=== PATIENT | female | born 1935 | race Hispanic/Latino ===

== ENCOUNTER 2021-04-22 12:41 | Inpatient (IN) | payer MEDICARE, OTHER ==
[~2021-04-22] VITALS: Ht 172.7 cm; Wt 43.1 kg
[2021-04-22 14:38] LABS: BASOPHILS % 0.2 % (0.0-1.0); HEMATOCRIT 35.4 % (34.2-44.1); HEMOGLOBIN 11.6 g/dL (12.0-16.0); LYMPHOCYTES # (AUTO) 1.3 (1.0-3.2); LYMPHOCYTES % 9.4 % (18.0-39.1); MEAN CORPUSCULAR HEMOGLOBIN 27.3 pg (28-32); MEAN CORPUSCULAR HGB CONC 32.8 g/dL (31-35); MEAN CORPUSCULAR VOLUME 83.3 fL (81-99); MONOCYTES # (AUTO) 0.7 (0.2-0.8); MONOCYTES % 5.2 % (4.4-11.3); NEUTROPHILS # (AUTO) 11.4 (2.1-6.9); NEUTROPHILS % 84.8 % (38.7-80.0); PLATELET COUNT 316 x10e3/uL (140-360); RED BLOOD COUNT 4.25 x10e6/uL (3.6-5.1); RED CELL DISTRIBUTION WIDTH 14.8 % (11.7-14.4)
[2021-04-22 14:49] LABS: INR 0.97; PROTHROMBIN TIME 13.7 seconds (11.9-14.5)
[2021-04-22 14:56] LABS: ALBUMIN 3.3 g/dL (3.5-5.0); ANION GAP 14.6 mmol/L (8-16); CALCIUM 9.3 mg/dL (8.4-10.2); CREATININE, SERUM 0.76 mg/dL (0.57-1.11); POTASSIUM 3.6 mmol/L (3.5-5.1)
[2021-04-22] MEDS ORDERED: ONDANSETRON HCL INJ 2MG/ML 2ML 2 MG/ML VIAL IV PRN (15:45)
[2021-04-22] MEDS: SODIUM CHLORIDE 0.9% 1000ML 1,000 ML IV SCH ×2 (16:21→18:26)
[2021-04-22 18:15] VITALS: BP 118/72
[2021-04-22 19:00] VITALS: BP 118/72
[2021-04-22 20:00] VITALS: BP 113/48
[2021-04-22] MEDS ORDERED: AUGMENTIN 875-1 EACH PO (20:03)
[2021-04-22] MEDS ORDERED: SINGULAIR10 MG PO (20:03)
[2021-04-22] MEDS ORDERED: METFORMIN HCL1000 MG PO (20:03)
[2021-04-22] MEDS ORDERED: ARICEPT5 MG PO (20:03)
[2021-04-22] MEDS ORDERED: METFORMIN HCL500 MG PO (20:03)
[2021-04-22] MEDS ORDERED: METOPROLOL SUCC25 MG PO (20:03)
[2021-04-22] MEDS ORDERED: LORATADINE10 MG PO (20:03)
[2021-04-22] MEDS ORDERED: OXYBUTYNIN CHLOR5 MG PO (20:03)
[2021-04-22] MEDS: Pantoprazole IV 40 MG in SODIUM CHLORIDE 0.9% 50ML 50 ML IV SCH (23:42)
[2021-04-23] VITALS: BP 108/57
[2021-04-23 00:44] LABS: FERRITIN 48.68 ng/mL (4.63-204.00)
[2021-04-23 04:00] VITALS: BP 110/59
[2021-04-23 05:32] LABS: BASOPHILS % 0.5 % (0.0-1.0); EOSINOPHILS # (AUTO) 0.1 (0.0-0.4); EOSINOPHILS % 1.7 % (0.0-6.0); HEMOGLOBIN 8.8 g/dL (12.0-16.0); LYMPHOCYTES # (AUTO) 1.9 (1.0-3.2); LYMPHOCYTES % 25.1 % (18.0-39.1); MEAN CORPUSCULAR HEMOGLOBIN 27.6 pg (28-32); MEAN CORPUSCULAR HGB CONC 32.6 g/dL (31-35); MEAN CORPUSCULAR VOLUME 84.6 fL (81-99); MONOCYTES # (AUTO) 0.7 (0.2-0.8); NEUTROPHILS # (AUTO) 4.9 (2.1-6.9); NEUTROPHILS % 63.3 % (38.7-80.0); PLATELET COUNT 210 x10e3/uL (140-360); RED BLOOD COUNT 3.19 x10e6/uL (3.6-5.1); RED CELL DISTRIBUTION WIDTH 14.8 % (11.7-14.4)
[2021-04-23 05:56] LABS: ANION GAP 12.5 mmol/L (8-16); CREATININE, SERUM 0.62 mg/dL (0.57-1.11); POTASSIUM 3.5 mmol/L (3.5-5.1)
[2021-04-23] MEDS: SODIUM CHLORIDE 0.9% 1000ML 1,000 ML IV SCH ×2 (07:45→15:45)
[2021-04-23 08:24] VITALS: BP 105/54
[2021-04-23 08:54] VITALS: BP 105/54
[2021-04-23] MEDS: Pantoprazole IV 40 MG in SODIUM CHLORIDE 0.9% 50ML 50 ML IV SCH ×3 (09:30→14:39)
[2021-04-23] MEDS ORDERED: PROPOFOL IV EMULSION 10 MG/ML 20 ML VIAL ONE (13:51)
[2021-04-23 20:00] VITALS: BP 112/56
[2021-04-24] VITALS (8 sets, daily range): BP systolic 102–120; BP diastolic 46–73
[2021-04-24] MEDS: Pantoprazole IV 40 MG in SODIUM CHLORIDE 0.9% 50ML 50 ML IV SCH ×6 (00:08→21:19)
[2021-04-24] MEDS: SODIUM CHLORIDE 0.9% 1000ML 1,000 ML IV SCH ×4 (00:08→21:19)
[2021-04-24 09:48] LABS: BASOPHILS # (AUTO) 0.1 (0.0-0.1); BASOPHILS % 1.2 % (0.0-1.0); EOSINOPHILS # (AUTO) 0.2 (0.0-0.4); EOSINOPHILS % 3.1 % (0.0-6.0); HEMATOCRIT 28.9 % (34.2-44.1); HEMOGLOBIN 8.9 g/dL (12.0-16.0); LYMPHOCYTES % 17.9 % (18.0-39.1); MEAN CORPUSCULAR HEMOGLOBIN 27.4 pg (28-32); MEAN CORPUSCULAR HGB CONC 30.8 g/dL (31-35); MEAN CORPUSCULAR VOLUME 88.9 fL (81-99); MONOCYTES # (AUTO) 0.3 (0.2-0.8); MONOCYTES % 5.4 % (4.4-11.3); NEUTROPHILS # (AUTO) 4.1 (2.1-6.9); NEUTROPHILS % 72.1 % (38.7-80.0); PLATELET COUNT 145 x10e3/uL (140-360); RED BLOOD COUNT 3.25 x10e6/uL (3.6-5.1); RED CELL DISTRIBUTION WIDTH 15.1 % (11.7-14.4)
[2021-04-24 10:05] LABS: ANION GAP 13.5 mmol/L (8-16); CALCIUM 7.9 mg/dL (8.4-10.2); CREATININE, SERUM 0.64 mg/dL (0.57-1.11); POTASSIUM 3.5 mmol/L (3.5-5.1)
[2021-04-25] VITALS (8 sets, daily range): BP systolic 113–143; BP diastolic 51–71
[2021-04-25] MEDS: Pantoprazole IV 40 MG in SODIUM CHLORIDE 0.9% 50ML 50 ML IV SCH ×5 (04:23→20:37)
[2021-04-25] MEDS: SODIUM CHLORIDE 0.9% 1000ML 1,000 ML IV SCH ×2 (07:45→15:03)
[2021-04-26] VITALS (8 sets, daily range): BP systolic 114–139; BP diastolic 61–84
[2021-04-26] MEDS: SODIUM CHLORIDE 0.9% 1000ML 1,000 ML IV SCH ×3 (00:26→18:20)
[2021-04-26] MEDS: Pantoprazole IV 40 MG in SODIUM CHLORIDE 0.9% 50ML 50 ML IV SCH ×5 (02:30→22:30)
[2021-04-27] VITALS (9 sets, daily range): BP systolic 95–143; BP diastolic 3–66
[2021-04-27] MEDS: Pantoprazole IV 40 MG in SODIUM CHLORIDE 0.9% 50ML 50 ML IV SCH ×4 (00:30→21:57)
[2021-04-27 05:03] LABS: BASOPHILS % 0.7 % (0.0-1.0); EOSINOPHILS # (AUTO) 0.3 (0.0-0.4); EOSINOPHILS % 6.5 % (0.0-6.0); HEMATOCRIT 25.2 % (34.2-44.1); HEMOGLOBIN 8.3 g/dL (12.0-16.0); LYMPHOCYTES # (AUTO) 1.4 (1.0-3.2); LYMPHOCYTES % 30.6 % (18.0-39.1); MEAN CORPUSCULAR HEMOGLOBIN 27.5 pg (28-32); MEAN CORPUSCULAR HGB CONC 32.9 g/dL (31-35); MEAN CORPUSCULAR VOLUME 83.4 fL (81-99); MONOCYTES # (AUTO) 0.4 (0.2-0.8); MONOCYTES % 8.5 % (4.4-11.3); NEUTROPHILS # (AUTO) 2.4 (2.1-6.9); NEUTROPHILS % 53.5 % (38.7-80.0); PLATELET COUNT 214 x10e3/uL (140-360); RED BLOOD COUNT 3.02 x10e6/uL (3.6-5.1)
[2021-04-27 05:37] LABS: ALBUMIN 2.2 g/dL (3.5-5.0); ALBUMIN/GLOBULIN RATIO 0.9 (0.8-2.0); ALKALINE PHOSPHATASE 40 IU/L (40-150); ANION GAP 9.6 mmol/L (8-16); BLOOD UREA NITROGEN 10 mg/dL (7-26); BUN/CREATININE RATIO 15 (6-25); CARBON DIOXIDE 27 mmol/L (22-29); CHLORIDE 105 mmol/L (98-107); CREATININE, SERUM 0.65 mg/dL (0.57-1.11); EST GLOMERULAR FILTRATION RATE 87 ML/MIN (60-); GLUCOSE 110 mg/dL (74-118); SODIUM 139 mmol/L (136-145)
[2021-04-27 05:58] LABS: ALANINE AMINOTRANSFERASE < 6 IU/L (0-55)
[2021-04-27 05:59] LABS: POTASSIUM 2.6 mmol/L (3.5-5.1)
[2021-04-27] MEDS ORDERED: POTASSIUM CHLORIDE 20 MEQ TAB CR PO ONE ×3 (08:30→16:00)
[2021-04-28] VITALS (7 sets, daily range): BP systolic 117–142; BP diastolic 52–69
[2021-04-28] MEDS: Pantoprazole IV 40 MG in SODIUM CHLORIDE 0.9% 50ML 50 ML IV SCH ×5 (03:13→21:09)
[2021-04-28 06:48] LABS: CALCIUM 7.9 mg/dL (8.4-10.2); CREATININE, SERUM 0.7 mg/dL (0.57-1.11)
[2021-04-29] VITALS: BP 117/56
[2021-04-29 04:00] VITALS: BP 116/77
[2021-04-29] MEDS: Pantoprazole IV 40 MG in SODIUM CHLORIDE 0.9% 50ML 50 ML IV SCH (04:14)
[2021-04-29 08:26] VITALS: BP 121/60
[2021-04-29 08:47] VITALS: BP 121/60
[2021-04-29 11:43] VITALS: BP 124/71
== END 2021-04-29 12:33 | DRG 378 ==
LOC: ER 14:22 → ERHOLD 15:34 → MED/SURG 18:03
PROVIDERS: ADMIT Internal Medicine; ATTEND Internal Medicine
PROC: 0DB78ZX Excision of Stomach, Pylorus, Via Natural or Artificial Opening Endoscopic, Diagnostic (ICD-10-PCS; 2021-04-23)
PROC: 0DB68ZX Excision of Stomach, Via Natural or Artificial Opening Endoscopic, Diagnostic (ICD-10-PCS; 2021-04-23)
PROC: 0DB48ZX Excision of Esophagogastric Junction, Via Natural or Artificial Opening Endoscopic, Diagnostic (ICD-10-PCS; principal; 2021-04-23 16:00)
DX: K29.71 Gastritis, unspecified, with bleeding (principal); K22.10 Ulcer of esophagus without bleeding; E44.0 Moderate protein-calorie malnutrition; Z68.1 Body mass index [BMI] 19.9 or less, adult; F03.90 Unspecified dementia, unspecified severity, without behavioral disturbance, psychotic disturbance, mood disturbance, and anxiety; E11.9 Type 2 diabetes mellitus without complications; I25.10 Atherosclerotic heart disease of native coronary artery without angina pectoris; J44.9 Chronic obstructive pulmonary disease, unspecified; J45.909 Unspecified asthma, uncomplicated; R19.7 Diarrhea, unspecified; K44.9 Diaphragmatic hernia without obstruction or gangrene; D50.0 Iron deficiency anemia secondary to blood loss (chronic); Z20.822 Contact with and (suspected) exposure to COVID-19
CPT/HCPCS: 36415; 43239; 71045; 80048; 80053; 82607; 82728; 82746; 82948; 83540; 84466; 84484; 85025; 85045; 85610; 86850; 86900; 88305; 88312; 93005; 94799; 97139; 99283; J2405; J7030; U0002

== ENCOUNTER 2022-07-22 18:34 | Inpatient (IN) | payer MEDICARE ==
[~2022-07-22] VITALS: Ht 325.1 cm; Wt 49.0 kg
[~2022-07-22 18:34] MED LIST: ARICEPT5 MG PO; AUGMENTIN 875-1 EACH PO; ETOMIDATE 2 MG/ML 10 ML INJ IV ONE; FENTANYL CITRATE/PF 100MCG/2 ML INJ ONE; LIDOCAINE HCL 2% LOCAL INJ 5 ML SDV VIAL INJ ONE; LORATADINE10 MG PO; METFORMIN HCL1000 MG PO; METFORMIN HCL500 MG PO; METOPROLOL SUCC25 MG PO; OXYBUTYNIN CHLOR5 MG PO; POVIDONE IODINE 0.05% 0.05 % ML PO ONE; PROPOFOL IV EMULSION 10 MG/ML 20 ML VIAL ONE; SINGULAIR10 MG PO
[2022-07-22] MEDS ORDERED: SODIUM CHLORIDE 0.9% 250ML 250 ML IV ONE (18:45)
[2022-07-22] MEDS ORDERED: ONDANSETRON HCL INJ 2MG/ML 2ML 2 MG/ML VIAL IV STA (18:46)
[2022-07-22] MEDS ORDERED: SODIUM CHLORIDE 0.9% 1000ML 1,000 ML IV ONE (19:00)
[2022-07-22 19:22] LABS: BASOPHILS % 0.2 % (0.0-1.0); LYMPHOCYTES # (AUTO) 0.7 (1.0-3.2); LYMPHOCYTES % 8.6 % (18.0-39.1); MEAN CORPUSCULAR HEMOGLOBIN 20.8 pg (28-32); MEAN CORPUSCULAR HGB CONC 27.8 g/dL (31-35); MEAN CORPUSCULAR VOLUME 74.7 fL (81-99); MONOCYTES # (AUTO) 0.6 (0.2-0.8); MONOCYTES % 6.4 % (4.4-11.3); NEUTROPHILS # (AUTO) 7.2 (2.1-6.9); NEUTROPHILS % 84.2 % (38.7-80.0); PLATELET COUNT 354 x10e3/uL (140-360); RED BLOOD COUNT 2.89 x10e6/uL (3.6-5.1)
[2022-07-22 19:31] LABS: INR 1.09; PROTHROMBIN TIME 14.3 seconds (11.9-14.5)
[2022-07-22 19:32] LABS: PARTIAL THROMBOPLASTIN TIME 21.9 seconds (23.8-35.5)
[2022-07-22 19:34] LABS: HEMATOCRIT 21.6 % (34.2-44.1)
[2022-07-22 19:42] LABS: ALBUMIN 3.2 g/dL (3.5-5.0); ALKALINE PHOSPHATASE 41 IU/L (40-150); ANION GAP 14.3 mmol/L (8-16); BLOOD UREA NITROGEN 35 mg/dL (7-26); BUN/CREATININE RATIO 45 (6-25); CALCIUM 8.9 mg/dL (8.4-10.2); CARBON DIOXIDE 26 mmol/L (22-29); CHLORIDE 103 mmol/L (98-107); CREATINE KINASE 29 IU/L (29-168); CREATININE, SERUM 0.78 mg/dL (0.57-1.11); GLUCOSE 195 mg/dL (74-118); POTASSIUM 3.3 mmol/L (3.5-5.1); SODIUM 140 mmol/L (136-145)
[2022-07-22 19:49] LABS: ALANINE AMINOTRANSFERASE < 6 IU/L (0-55)
[2022-07-22] MEDS ORDERED: IOPAMIDOL 370 MG/ML 100 ML INFUS..BTL INJ ONE (20:13)
[2022-07-22] MEDS ORDERED: DEXTROSE 50% SYRINGE 50 ML IV PRN (21:00)
[2022-07-22] MEDS: INSULIN REGULAR, HUMAN 100 UNIT/1 ML SQ SCH (21:00)
[2022-07-22] MEDS ORDERED: ONDANSETRON HCL INJ 2MG/ML 2ML 2 MG/ML VIAL IV PRN (21:00)
[2022-07-22 21:23] LABS: COLOR,URINE YELLOW (YELLOW); KETONES,URINE NEGATIVE (NEGATIVE); LEUKOCYTE ESTERASE ,URINE TRACE (NEGATIVE); NITRITE,URINE NEGATIVE (NEGATIVE); PROTEIN,URINE DIPSTICK TRACE (NEGATIVE); URINE UROBILINOGEN 0.2 mg/dL (0.2 - 1)
[2022-07-22 21:31] LABS: CLARITY,URINE CLOUDY (CLEAR); WBC,URINE (MAN) >50 /HPF (0-5)
[2022-07-22 21:32] LABS: BACTERIA,URINE MANY /HPF
[2022-07-22 21:33] LABS: EPITHELIAL CELLS,URINE MANY /LPF
[2022-07-22 21:34] LABS: TRANSITIONAL EPI CELLS,URINE FEW
[2022-07-22 22:20] VITALS: BP 122/48
[2022-07-22 23:02] VITALS: BP 76/58
[2022-07-22 23:15] VITALS: BP 108/51
[2022-07-22] MEDS: SODIUM CHLORIDE 0.9% 1000ML 1,000 ML IV SCH (23:30)
[2022-07-23] VITALS (23 sets, daily range): BP systolic 101–132; BP diastolic 52–96
[2022-07-23] MEDS ORDERED: SODIUM CHLORIDE 0.9% 250ML 250 ML ONE (00:21)
[2022-07-23 00:56] LABS: HEMATOCRIT 25.5 % (34.2-44.1); HEMOGLOBIN 7.2 g/dL (12.0-16.0)
[2022-07-23] MEDS ORDERED: VITAMIN D325 MCG PO (01:07)
[2022-07-23] MEDS ORDERED: LISINOPRIL10 MG PO (01:08)
[2022-07-23] MEDS ORDERED: MIRTAZAPINE15 MG PO (01:12)
[2022-07-23] MEDS ORDERED: POTASSIUM CHLO20 ME1 PO (01:14)
[2022-07-23] MEDS ORDERED: BISACODYL 10 MG SUPP PR ONE (02:15)
[2022-07-23] MEDS ORDERED: GUAIFENESIN/DEXTROMETHORPHAN LIQD 5 ML UDC PO PRN (02:15)
[2022-07-23] MEDS ORDERED: MAGNESIUM HYDROXIDE 30 ML UDC PO PRN (02:15)
[2022-07-23] MEDS ORDERED: MAGNESIUM/ALUMINUM/SIMETHICONE 30 ML UDC PO PRN (02:15)
[2022-07-23] MEDS ORDERED: HYDRALAZINE HCL 20 MG/ML VIAL IV PRN (02:15)
[2022-07-23] MEDS ORDERED: ACETAMINOPHEN 325 MG TAB PO PRN (02:15)
[2022-07-23] MEDS ORDERED: MELATONIN 3 MG TAB PO PRN (02:15)
[2022-07-23 03:57] LABS: FERRITIN 4.66 ng/mL (4.63-204.00)
[2022-07-23 05:50] LABS: HEMATOCRIT 28.7 % (34.2-44.1); HEMOGLOBIN 8.5 g/dL (12.0-16.0)
[2022-07-23] MEDS: IPRATROPIUM BROMIDE 0.02% 2.5 ML NEB NEB SCH ×5 (06:00→22:51)
[2022-07-23 06:19] LABS: ALBUMIN 2.7 g/dL (3.5-5.0); ALBUMIN/GLOBULIN RATIO 1.2 (0.8-2.0); ALKALINE PHOSPHATASE 37 IU/L (40-150); ANION GAP 9.9 mmol/L (8-16); BLOOD UREA NITROGEN 25 mg/dL (7-26); BUN/CREATININE RATIO 40 (6-25); CALCIUM 7.7 mg/dL (8.4-10.2); CARBON DIOXIDE 24 mmol/L (22-29); CHLORIDE 111 mmol/L (98-107); CREATININE, SERUM 0.62 mg/dL (0.57-1.11); GLUCOSE 102 mg/dL (74-118); SODIUM 142 mmol/L (136-145)
[2022-07-23 06:20] LABS: ALANINE AMINOTRANSFERASE < 6 IU/L (0-55)
[2022-07-23 06:22] LABS: POTASSIUM 2.9 mmol/L (3.5-5.1)
[2022-07-23 06:27] LABS: CREATINE KINASE MB 3.3 ng/mL (0-5.0)
[2022-07-23] MEDS: INSULIN REGULAR, HUMAN 100 UNIT/1 ML SQ SCH ×4 (07:30→21:00)
[2022-07-23] MEDS ORDERED: POTASSIUM CHLORIDE 20 MEQ TAB CR PO STA (07:33)
[2022-07-23] MEDS ORDERED: POTASSIUM CHLORIDE 20MEQ/100ML 100 ML IV ONE ×2 (07:45→15:15)
[2022-07-23] MEDS: MULTIVITAMINS/MINERALS TAB PO SCH (09:00)
[2022-07-23] MEDS: DOCUSATE SODIUM 100 MG CAP PO SCH ×2 (09:00→16:04)
[2022-07-23] MEDS ORDERED: POTASSIUM CHLORIDE 20 MEQ TAB CR PO ONE (10:00)
[2022-07-23] MEDS: SODIUM CHLORIDE 0.9% 1000ML 1,000 ML IV SCH ×2 (10:27→21:58)
[2022-07-23 12:34] LABS: HEMATOCRIT 28.6 % (34.2-44.1); HEMOGLOBIN 8.5 g/dL (12.0-16.0)
[2022-07-23] MEDS ORDERED: POTASSIUM CHLORIDE 10MEQ/100ML 100 ML IV ONE (17:30)
[2022-07-23] MEDS: LEVOFLOXACIN 500MG/D5W 100ML 100 ML IV SCH (21:08)
[2022-07-24] VITALS (30 sets, daily range): BP systolic 92–150; BP diastolic 58–108
[2022-07-24] MEDS: IPRATROPIUM BROMIDE 0.02% 2.5 ML NEB NEB SCH ×6 (03:00→23:40)
[2022-07-24 05:00] LABS: HEMATOCRIT 24.4 % (34.2-44.1); HEMOGLOBIN 7.2 g/dL (12.0-16.0)
[2022-07-24 05:30] LABS: ANION GAP 8.9 mmol/L (8-16); CREATININE, SERUM 0.52 mg/dL (0.57-1.11); MAGNESIUM 1.4 MG/DL (1.3-2.1)
[2022-07-24 05:47] LABS: CALCIUM 6.8 mg/dL (8.4-10.2); POTASSIUM 2.9 mmol/L (3.5-5.1)
[2022-07-24] MEDS: SODIUM CHLORIDE 0.9% 1000ML 1,000 ML IV SCH (06:32)
[2022-07-24] MEDS: POTASSIUM CHLORIDE 20MEQ/100ML 100 ML IV SCH ×3 (06:33→11:03)
[2022-07-24] MEDS ORDERED: MAGNESIUM SULFATE 2GM/50ML 50 ML IV ONE (07:00)
[2022-07-24] MEDS: INSULIN REGULAR, HUMAN 100 UNIT/1 ML SQ SCH ×4 (07:30→21:00)
[2022-07-24] MEDS: DOCUSATE SODIUM 100 MG CAP PO SCH ×2 (08:11→17:00)
[2022-07-24] MEDS: MULTIVITAMINS/MINERALS TAB PO SCH (08:12)
[2022-07-24] MEDS: SOD CHL 0.45%/POT CHL 20MEQ 1,000 ML IV SCH ×2 (08:48→19:42)
[2022-07-24] MEDS: IRON SUCROSE 100 MG in SODIUM CHLORIDE 0.9% 100 ML IV SCH (08:48)
[2022-07-24 15:06] LABS: CREATINE KINASE MB 2.6 ng/mL (0-5.0)
[2022-07-24] MEDS: LEVOFLOXACIN 500MG/D5W 100ML 100 ML IV SCH (21:49)
[2022-07-25] VITALS (20 sets, daily range): BP systolic 102–133; BP diastolic 55–101
[2022-07-25] MEDS: IPRATROPIUM BROMIDE 0.02% 2.5 ML NEB NEB SCH ×2 (03:05→07:17)
[2022-07-25] MEDS: SOD CHL 0.45%/POT CHL 20MEQ 1,000 ML IV SCH ×2 (06:27→14:51)
[2022-07-25] MEDS: INSULIN REGULAR, HUMAN 100 UNIT/1 ML SQ SCH ×4 (07:30→20:56)
[2022-07-25 07:37] LABS: ALANINE AMINOTRANSFERASE 7 IU/L (0-55); ALBUMIN 2.4 g/dL (3.5-5.0); ALBUMIN/GLOBULIN RATIO 0.9 (0.8-2.0); ALKALINE PHOSPHATASE 40 IU/L (40-150); ANION GAP 12.7 mmol/L (8-16); BLOOD UREA NITROGEN < 5 mg/dL (7-26); CALCIUM 7.7 mg/dL (8.4-10.2); CARBON DIOXIDE 22 mmol/L (22-29); CHLORIDE 103 mmol/L (98-107); CREATININE, SERUM 0.57 mg/dL (0.57-1.11); GLUCOSE 74 mg/dL (74-118); POTASSIUM 3.7 mmol/L (3.5-5.1); SODIUM 134 mmol/L (136-145)
[2022-07-25 07:43] LABS: BUN/CREATININE RATIO 9 (6-25)
[2022-07-25] MEDS ORDERED: POTASSIUM CHLORIDE 20MEQ/100ML 200 ML IV ONE (08:00)
[2022-07-25] MEDS: DOCUSATE SODIUM 100 MG CAP PO SCH ×2 (08:14→16:14)
[2022-07-25] MEDS ORDERED: IPRATROPIUM BROMIDE 0.02% 2.5 ML NEB NEB PRN (08:15)
[2022-07-25 08:16] LABS: BASOPHILS % 0.5 % (0.0-1.0); EOSINOPHILS # (AUTO) 0.3 (0.0-0.4); EOSINOPHILS % 4.3 % (0.0-6.0); HEMATOCRIT 25.7 % (34.2-44.1); HEMOGLOBIN 8.1 g/dL (12.0-16.0); LYMPHOCYTES # (AUTO) 0.9 (1.0-3.2); LYMPHOCYTES % 11.4 % (18.0-39.1); MEAN CORPUSCULAR HEMOGLOBIN 24.7 pg (28-32); MEAN CORPUSCULAR HGB CONC 31.5 g/dL (31-35); MEAN CORPUSCULAR VOLUME 78.4 fL (81-99); MONOCYTES # (AUTO) 0.6 (0.2-0.8); MONOCYTES % 7.8 % (4.4-11.3); NEUTROPHILS # (AUTO) 5.6 (2.1-6.9); NEUTROPHILS % 75.5 % (38.7-80.0); PLATELET COUNT 188 x10e3/uL (140-360); RED BLOOD COUNT 3.28 x10e6/uL (3.6-5.1); RED CELL DISTRIBUTION WIDTH 20.5 % (11.7-14.4)
[2022-07-25] MEDS: IRON SUCROSE 100 MG in SODIUM CHLORIDE 0.9% 100 ML IV SCH (08:16)
[2022-07-25] MEDS: MULTIVITAMINS/MINERALS TAB PO SCH (08:16)
[2022-07-25] MEDS: LEVOFLOXACIN 500MG/D5W 100ML 100 ML IV SCH (20:56)
[2022-07-26] VITALS (12 sets, daily range): BP systolic 103–136; BP diastolic 61–76
[2022-07-26] MEDS: SOD CHL 0.45%/POT CHL 20MEQ 1,000 ML IV SCH ×4 (00:35→23:15)
[2022-07-26 06:23] LABS: BASOPHILS % 0.6 % (0.0-1.0); EOSINOPHILS # (AUTO) 0.4 (0.0-0.4); EOSINOPHILS % 8.1 % (0.0-6.0); HEMATOCRIT 25.4 % (34.2-44.1); HEMOGLOBIN 8.2 g/dL (12.0-16.0); LYMPHOCYTES # (AUTO) 0.9 (1.0-3.2); LYMPHOCYTES % 16.6 % (18.0-39.1); MEAN CORPUSCULAR HEMOGLOBIN 25.3 pg (28-32); MEAN CORPUSCULAR HGB CONC 32.3 g/dL (31-35); MEAN CORPUSCULAR VOLUME 78.4 fL (81-99); MONOCYTES # (AUTO) 0.5 (0.2-0.8); MONOCYTES % 9.1 % (4.4-11.3); NEUTROPHILS # (AUTO) 3.4 (2.1-6.9); PLATELET COUNT 181 x10e3/uL (140-360); RED BLOOD COUNT 3.24 x10e6/uL (3.6-5.1); RED CELL DISTRIBUTION WIDTH 21.7 % (11.7-14.4)
[2022-07-26 06:46] LABS: ALANINE AMINOTRANSFERASE 6 IU/L (0-55); ALBUMIN 2.4 g/dL (3.5-5.0); ALBUMIN/GLOBULIN RATIO 0.9 (0.8-2.0); ALKALINE PHOSPHATASE 39 IU/L (40-150); ANION GAP 11.9 mmol/L (8-16); BLOOD UREA NITROGEN < 5 mg/dL (7-26); BUN/CREATININE RATIO 9 (6-25); CALCIUM 8.1 mg/dL (8.4-10.2); CARBON DIOXIDE 24 mmol/L (22-29); CHLORIDE 105 mmol/L (98-107); CREATININE, SERUM 0.58 mg/dL (0.57-1.11); GLUCOSE 80 mg/dL (74-118); POTASSIUM 3.9 mmol/L (3.5-5.1); SODIUM 137 mmol/L (136-145)
[2022-07-26] MEDS: INSULIN REGULAR, HUMAN 100 UNIT/1 ML SQ SCH ×4 (07:30→21:00)
[2022-07-26] MEDS: DOCUSATE SODIUM 100 MG CAP PO SCH ×2 (08:41→23:13)
[2022-07-26] MEDS: MULTIVITAMINS/MINERALS TAB PO SCH (08:41)
[2022-07-26] MEDS: IRON SUCROSE 100 MG in SODIUM CHLORIDE 0.9% 100 ML IV SCH (08:41)
[2022-07-26] MEDS: LEVOFLOXACIN 500MG/D5W 100ML 100 ML IV SCH (23:14)
[2022-07-27] VITALS (7 sets, daily range): BP systolic 96–111; BP diastolic 57–71
[2022-07-27] MEDS: SOD CHL 0.45%/POT CHL 20MEQ 1,000 ML IV SCH ×3 (05:53→18:27)
[2022-07-27 06:12] LABS: BASOPHILS % 0.6 % (0.0-1.0); EOSINOPHILS # (AUTO) 0.3 (0.0-0.4); HEMATOCRIT 24.6 % (34.2-44.1); HEMOGLOBIN 8.1 g/dL (12.0-16.0); LYMPHOCYTES % 21.4 % (18.0-39.1); MEAN CORPUSCULAR HEMOGLOBIN 26.4 pg (28-32); MEAN CORPUSCULAR HGB CONC 32.9 g/dL (31-35); MEAN CORPUSCULAR VOLUME 80.1 fL (81-99); MONOCYTES # (AUTO) 0.5 (0.2-0.8); MONOCYTES % 11.2 % (4.4-11.3); NEUTROPHILS # (AUTO) 2.8 (2.1-6.9); NEUTROPHILS % 60.4 % (38.7-80.0); PLATELET COUNT 173 x10e3/uL (140-360); RED BLOOD COUNT 3.07 x10e6/uL (3.6-5.1); RED CELL DISTRIBUTION WIDTH 23.9 % (11.7-14.4)
[2022-07-27 06:44] LABS: ALBUMIN 2.4 g/dL (3.5-5.0); ALBUMIN/GLOBULIN RATIO 0.9 (0.8-2.0); ALKALINE PHOSPHATASE 38 IU/L (40-150); ANION GAP 12.6 mmol/L (8-16); BLOOD UREA NITROGEN 8 mg/dL (7-26); BUN/CREATININE RATIO 11 (6-25); CALCIUM 8.1 mg/dL (8.4-10.2); CARBON DIOXIDE 24 mmol/L (22-29); CHLORIDE 105 mmol/L (98-107); CREATININE, SERUM 0.72 mg/dL (0.57-1.11); GLUCOSE 94 mg/dL (74-118); POTASSIUM 3.6 mmol/L (3.5-5.1); SODIUM 138 mmol/L (136-145)
[2022-07-27 06:50] LABS: ALANINE AMINOTRANSFERASE < 6 IU/L (0-55)
[2022-07-27] MEDS: INSULIN REGULAR, HUMAN 100 UNIT/1 ML SQ SCH ×4 (07:30→21:00)
[2022-07-27] MEDS: IRON SUCROSE 100 MG in SODIUM CHLORIDE 0.9% 100 ML IV SCH (09:00)
[2022-07-27] MEDS: MULTIVITAMINS/MINERALS TAB PO SCH (09:49)
[2022-07-27] MEDS: DOCUSATE SODIUM 100 MG CAP PO SCH ×2 (09:50→21:00)
[2022-07-27] MEDS ORDERED: SODIUM CHLORIDE 0.9% 200 ML ONE (20:12)
[2022-07-27] MEDS: LEVOFLOXACIN 500MG/D5W 100ML 100 ML IV SCH (21:00)
[2022-07-27] MEDS ORDERED: IRON SUCROSE 100 MG in SODIUM CHLORIDE 0.9% 100 ML IV SCH (21:00)
[2022-07-28] VITALS (9 sets, daily range): BP systolic 97–127; BP diastolic 58–73
[2022-07-28] MEDS: SOD CHL 0.45%/POT CHL 20MEQ 1,000 ML IV SCH ×2 (06:33→12:30)
[2022-07-28] MEDS: INSULIN REGULAR, HUMAN 100 UNIT/1 ML SQ SCH ×4 (07:30→21:00)
[2022-07-28] MEDS ORDERED: IRON SUCROSE 100 MG in SODIUM CHLORIDE 0.9% 100 ML IV SCH (09:00)
[2022-07-28] MEDS: MULTIVITAMINS/MINERALS TAB PO SCH (09:03)
[2022-07-28] MEDS: IRON-VITAMIN-MINERAL CAPSULE PO SCH ×2 (09:03→17:09)
[2022-07-28] MEDS: DOCUSATE SODIUM 100 MG CAP PO SCH ×2 (09:03→21:32)
[2022-07-28] MEDS: LEVOFLOXACIN 500MG/D5W 100ML 100 ML IV SCH (21:32)
[2022-07-29] VITALS (10 sets, daily range): BP systolic 99–112; BP diastolic 58–64
[2022-07-29] MEDS: INSULIN REGULAR, HUMAN 100 UNIT/1 ML SQ SCH ×3 (07:26→16:30)
[2022-07-29] MEDS: DOCUSATE SODIUM 100 MG CAP PO SCH (08:33)
[2022-07-29] MEDS: MULTIVITAMINS/MINERALS TAB PO SCH (08:33)
[2022-07-29] MEDS: IRON-VITAMIN-MINERAL CAPSULE PO SCH ×2 (08:33→17:15)
== END 2022-07-29 22:30 | DRG 380 ==
LOC: ER 18:42 → ERHOLD 20:59 → ICU 22:15 → MED/SURG 07-26 11:36
PROVIDERS: ADMIT Internal Medicine; ATTEND Internal Medicine
PROC: 30233N1 Transfusion of Nonautologous Red Blood Cells into Peripheral Vein, Percutaneous Approach (ICD-10-PCS; principal; 2022-07-23)
PROC: 02HV33Z Insertion of Infusion Device into Superior Vena Cava, Percutaneous Approach (ICD-10-PCS; 2022-07-23)
PROC: 0DB18ZX Excision of Upper Esophagus, Via Natural or Artificial Opening Endoscopic, Diagnostic (ICD-10-PCS; 2022-07-24)
PROC: 0DB78ZX Excision of Stomach, Pylorus, Via Natural or Artificial Opening Endoscopic, Diagnostic (ICD-10-PCS; 2022-07-24)
PROC: 0D768ZZ Dilation of Stomach, Via Natural or Artificial Opening Endoscopic (ICD-10-PCS; 2022-07-24)
PROC: 0D7A8ZZ Dilation of Jejunum, Via Natural or Artificial Opening Endoscopic (ICD-10-PCS; 2022-07-24)
DX: K22.11 Ulcer of esophagus with bleeding (principal); G93.41 Metabolic encephalopathy; D62 Acute posthemorrhagic anemia; N39.0 Urinary tract infection, site not specified; E44.0 Moderate protein-calorie malnutrition; K31.1 Adult hypertrophic pyloric stenosis; K29.71 Gastritis, unspecified, with bleeding; B96.20 Unspecified Escherichia coli [E. coli] as the cause of diseases classified elsewhere; I10 Essential (primary) hypertension; E11.9 Type 2 diabetes mellitus without complications; K63.89 Other specified diseases of intestine; I70.8 Atherosclerosis of other arteries; K44.9 Diaphragmatic hernia without obstruction or gangrene; F03.90 Unspecified dementia, unspecified severity, without behavioral disturbance, psychotic disturbance, mood disturbance, and anxiety; D50.9 Iron deficiency anemia, unspecified; F09 Unspecified mental disorder due to known physiological condition; E87.6 Hypokalemia; Z20.822 Contact with and (suspected) exposure to COVID-19; Z88.0 Allergy status to penicillin
CPT/HCPCS: 36415; 36569; 43233; 43239; 51700; 71045; 74177; 80048; 80053; 81001; 82550; 82553; 82607; 82728; 82746; 82948; 83540; 83605; 83735; 84466; 84484; 85014; 85018; 85025; 85045; 85610; 85730; 86850; 86900; 86920; 87040; 87086; 87186; 88304; 88305; 88312; 88342; 93005; 94640; 94799; 96365; 99252; 99285; J1756; J1817; J1956; J2001; J2405; J3010; J3475; J3480; J7030; J7050; P9016; Q9967